=== PATIENT | male | born 1985 ===

== ENCOUNTER 2016-08-09 15:23 | Emergency (ER) | payer MEDICARE, OTHER ==
[2016-08-09 15:40] VITALS: BP 167/89; PULSE 76; RESP 18; TEMP 98.4; O2SAT 99
[2016-08-09] MEDS ORDERED: TDAP Vaccine 0.5 mL Syr IM ONE (15:46)
[2016-08-09] MEDS ORDERED: ceFAZolin 1 GM in Sodium Chloride 0.9% 100 ML IVPB STA (16:13)
--- NOTE | 2016-08-09 16:14 | ED PDOC ---
Upper Extremity Pain/Injury Time Seen by Provider: 08/09/16 16:08 Chief Complaint (Nursing): Upper Extremity Problem/Injury Chief Complaint (Provider): Right 4th Finger Injury History Per: Patient History/Exam Limitations: no limitations Onset/Duration Of Symptoms: Hrs (just prior to arrival) Current Symptoms Are (Timing): Still Present Additional Complaint(s): Eleazar Boateng is a 30 year old right hand-dominant male, with no pertinent past medical history, who presents to the ED on 08/09/16, via EMS, for the evaluation of an injury that he had sustained to his right 4th finger after having dropped a dumbbell on it just prior to arrival. Patient is missing distal most portion of finger. Tetanus vaccination is not up to date. PMD: none Past Medical History Reviewed: Historical Data, Nursing Documentation, Vital Signs Vital Signs: Last Vital Signs Temp 98.4 F 08/09/16 15:30 Pulse 76 08/09/16 15:30 Resp 18 08/09/16 15:30 BP 167/89 H 08/09/16 15:30 Pulse Ox 99 08/09/16 15:30 - Medical History PMH: No Chronic Diseases - Family History Family History: States: Unknown Family Hx - Home Medications Home Medications: Ambulatory Orders Medication Instructions Recorded Acetaminophen [Acetaminophen Extra 2 tab PO Q6 PRN #24 tablet 08/09/16 Strength] Cephalexin [Keflex] 1 tab PO QID #28 capsule 08/09/16 - Allergies Allergies/Adverse Reactions: Allergies Allergy/AdvReac Type Severity Reaction Status Date / Time No Known Allergies Allergy Verified 12/19/14 15:46 Review of Systems Musculoskeletal: Positive for: Hand Pain (right 4th finger injury) Physical Exam - Reviewed Nursing Documentation Reviewed: Yes Vital Signs Reviewed: Yes - Physical Exam Appears: Positive for: Non-toxic, In Acute Distress (moderate painful distress) Skin: Positive for: Normal Color, Warm, Dry Extremity: Positive for: Normal ROM (FROM of all remaining fingers on right hand ), Deformity (notable amputation 1/2 of right 4th distal phalanx with (+) bone exposure; nail is completely removed) Neurologic/Psych: Positive for: Alert, Oriented - Laboratory Results Result Diagrams: 08/09/16 16:20 08/09/16 16:20 - ECG O2 Sat by Pulse Oximetry: 99 (RA) Pulse Ox Interpretation: Normal - Progress ED Course And Treament: XRAY: SMALL DISTAL TUFT FX NOTED ON XRY OF FOURTH DIGIT ancef 1 gm iv x 1 dose Dilaudid 1 mg iv x 1 dose in ED for pain Seen by Dr. Briscoe. Repair by him in ED. Patient to be d/c on Keflex,tylenol as d/w him. Medical Decision Making Medical Decision Makin:08 Initial Impression: amputation of portion of distal right 4th phalanx Will call hand specialist paper conservator for consult. Initial Plan: * XR Right Hand 4th Digit * Blood Type/Screen * Labs * PTT * PT/INR * Ancef IVPB * Dilaudid 1mg IVP * Zofran 4mg IVP * TDAP 0.5ml IM * Keflex 500mg PO * Reevaluation 16:[address] Briscoe (Hand Specialist paper conservator), who will come to evaluate patient at bedside. Scribe Attestation: Documented by Keke Dexter, acting as a scribe for Pallavi Cuba PA-C. Provider Scribe Attestation: All medical record entries made by the Scribe were at my direction and personally dictated by me. I have reviewed the chart and agree that the record accurately reflects my personal performance of the history, physical exam, medical decision making, and the department course for this patient. I have also personally directed, reviewed, and agree with the discharge instructions and disposition. Disposition - Clinical Impression Clinical Impression: Finger amputation, traumatic, Fracture of distal phalanx of finger, open - Patient ED Disposition Is Patient to be Admitted: No - Disposition Referrals: Ronaldo Briscoe MD [Staff Provider] - Disposition: Routine/Home Disposition Time: 18:56 Condition: FAIR Prescriptions: Acetaminophen [Acetaminophen Extra Strength] 2 tab PO Q6 PRN #24 tablet PRN Reason: Pain, Severe (8-10) Cephalexin [Keflex] 1 tab PO QID #28 capsule Instructions: Finger Amputation (ED) Forms: [facility] ED School/Work Excuse
[2016-08-09] MEDS ORDERED: HYDROmorphone 0.5 mg/0.5 ml ISec ONE (16:21)
[2016-08-09 16:41] LABS: BASO # 0.1 K/uL (0.0-0.2); BASO % 0.9 % (0.0-2.0); EOS # 0.1 K/uL (0.0-0.7); EOS % 0.8 % (0.0-4.0); HEMATOCRIT 44.9 % (35.0-51.0); LYMPH # 1.6 K/uL (1.0-4.3); LYMPH % 14.2 % (20.0-40.0); MEAN CELL VOLUME 82.7 fl (80.0-94.0); MEAN CORPUSCULAR HEMOGLOBIN 27.8 pg (27.0-31.0); MEAN CORPUSCULAR HGB CONC 33.6 g/dL (33.0-37.0); MEAN PLATELET VOLUME 8.7 fl (7.2-11.7); MONO % 8.8 % (0.0-10.0); NEUT # 8.3 K/uL (1.8-7.0); NEUT % 75.3 % (50.0-75.0); RED CELL DISTRIBUTION WIDTH 14.6 % (11.5-14.5); WHITE BLOOD COUNT 11.1 K/uL (4.8-10.8)
--- NOTE | 2016-08-09 16:56 | RAD ---
PROCEDURE: Right ring finger radiographs. HISTORY: finger injury COMPARISON: None. TECHNIQUE: AP radiograph of the right hand, as well as spot oblique and lateral images of ring finger were obtained. FINDINGS: RIGHT RING FINGER: Status post partial amputation of the tuft of the 4th distal phalanx. No other fracture identified. JOINTS: Normal. SOFT TISSUES: Soft tissue irregularity of the distal half of the 4th digit with sandra soft tissue absence in the most distal aspect of the digit. OTHER FINDINGS: None. IMPRESSION: Amputation distal tuft of 4th distal phalanx with soft tissue amputation and soft tissue maceration of distal half of 4th digit. .
[2016-08-09] MEDS ORDERED: Sodium Chloride 0.9% 1,000 ML IV STA (16:58)
[2016-08-09 17:01] LABS: PARTIAL THROMBOPLASTIN TIME 23.7 SECONDS (23.3-32.5)
[2016-08-09 17:14] LABS: ALB/GLOB RATIO 1.2 (1.0-2.1); ALKALINE PHOSPHATASE 103 U/L (38-126); ALT/SGPT 43 U/L (21-72); AST/SGOT 56 U/L (17-59); BILIRUBIN,TOTAL 0.7 mg/dl (0.2-1.3); BLOOD UREA NITROGEN 20 mg/dl (9-20); CALCIUM 9.4 mg/dL (8.4-10.2); CARBON DIOXIDE 26 mmol/L (22-30); CHLORIDE 102 mmol/L (98-107); GFR AFRICAN-AMERICAN > 60; GLUCOSE,RANDOM 100 mg/dL (75-110); SODIUM 141 mmol/l (132-148); TOTAL PROTEIN 7.7 G/DL (6.3-8.2)
[2016-08-09 17:42] LABS: POTASSIUM 5.1 MMOL/L (3.6-5.0)
[2016-08-09] MEDS ORDERED: Lidocaine 1% Inj (20ml) IJ ONE (17:54)
== END 2016-08-09 20:19 | disposition home or self-care (01) ==
LOC: H.ER 15:23
DX: S68.114A Complete traumatic metacarpophalangeal amputation of right ring finger, initial encounter (principal); W22.8XXA Striking against or struck by other objects, initial encounter; Y92.89 Other specified places as the place of occurrence of the external cause
CPT/HCPCS: 73140; 80053; 85025; 85610; 85730; 86850; 86900; 90471; 90715; 96374; 96375; 99284; J0690; J1170; J2405; J7040